=== PATIENT | male | born 1955 | race Caucasian/White ===

== ENCOUNTER 2023-01-28 15:57 | Emergency (ER) | payer MEDICARE, SELFPAY ==
--- NOTE | 2023-01-28 18:08 | MHC.EDTECH ---
Medical Examiners office was called at 1720. They Declined at 1757. But organ bank will be placing a hold on.
--- NOTE | 2023-01-28 19:11 | ED.CPR ---
HPI - CPR General Chief Complaint: Cardiac Arrest/CPR Stated Complaint: cardiac arrest Time Seen by Provider: 01/28/23 17:42 Source: EMS Mode of arrival: EMS Limitations: other History of Present Illness HPI narrative: Patient came to the emergency room via EMS in cardiac arrest. EMS reports that the patient was [place] in [place], [place]. According to bystanders, the patient reported severe back pain prior to having a witnessed syncopal episode. According to EMS, when they arrived at the side, patient still had pulses and had spontaneous respirations. The 1st EKG obtained by EMS was nondiagnostic, a 2nd EKG was done shortly after, which showed an inferior posterior STEMI. The ambulance was en route to [facility], but the patient lost pulse. CPR was started. According to EMS, the patient only had PEA, no shockable rhythm. Patient arrived to the ED still in cardiac arrest, PA, CPR in progress, patient was intubated by paramedics in the field, on arrival, ET tube placement was confirmed with a GlideScope on arrival to the ED. Related Data Allergies Allergy/AdvReac Type Severity Reaction Status Date / Time nortriptyline [NORTRIPTYLINE] Allergy Severe TACHY Unverified 06/08/20 15:40 Penicillins [PENICILLINS] Allergy Severe RASH Unverified 06/08/20 15:40 bee sting? Allergy Unknown rash/lighth Uncoded 01/05/18 00:00 eaded penicillin Allergy Unknown rash Uncoded 01/05/18 00:00 Adhesive Tape AdvReac Unknown rash Uncoded 01/05/18 00:00 gabapentin - eye symptoms AdvReac Unknown eye sx Uncoded 01/05/18 00:00 nortryptiline AdvReac Unknown rapid Uncoded 01/05/18 00:00 heart rate Review of Systems Review of Systems: Yes Unobtainable due to mental condition [facility] Past Medical History Source: unable to obtain Social History Social History Advance Directives: No Advance Directives Information Provided: No Physical Exam Const: Other: Appearance: Be unresponsive Eyes: Dilated, unresponsive to light ENT: ET tube in place, confirmed with GlideScope Neck: Normal inspection. Neck supple. No lymph nodes noted. No crepitus CVS: CPR in progress with Yuri Respiratory: Being ventilated, intubated Abdomen: Distended Skin: Cold, no ecchymosis Extremities: No lacerations Neuro: Unresponsive Psych: Unresponsive Medical Decision Making Medical Decision Making MDM Narrative: -EKG per EMS prior to arrival show an inferior posterior STEMI, which was likely the cause of -on arrival, patient had PEA. Patient did not have any shockable rhythm. Patient received multiple doses of epinephrine, calcium chloride and bicarbonate. -CPR was started at 1546 and time of was called at 16:20 -there was no signs of trauma. -medical reimbursement manager declined the case, Dr. Patience Oliveros, Critical Care Time Critical Care Time Critical Care Time: Yes Total Critical Care Time: 60 Attestation: I have personally provided critical care time. Time includes review of lab data, radiology results, discussion with consultants, and monitoring for potential decompensation. Intervention performed as documented. Discharge Plan Discharge Clinical Impression: Cardiac arrest Patient Disposition: Date/Time: 01/28/23 16:20
[2023-01-29 08:18] LABS: Glucose, Whole Blood 115 mg/dL (60-115)
== END 2023-01-28 23:31 | disposition expired ==
PROVIDERS: Emergency Provider Emergency Medicine
DX: I46.9 Cardiac arrest, cause unspecified (principal); I21.11 ST elevation (STEMI) myocardial infarction involving right coronary artery
CPT/HCPCS: 82947; 96374; 99282; 99285